=== PATIENT | female | born 1975 | race Caucasian/White ===

== ENCOUNTER 2021-10-06 11:10 | Emergency (ER) | payer OTHER ==
[~2021-10-06] VITALS: Ht 157.5 cm; Wt 47.6 kg
[2021-10-06 11:16] VITALS: BP 111/67
--- NOTE | 2021-10-06 11:20 | NUR ---
Bibs for both ear pressure and high pitch sound x 2 weeks, 03/27 ps. Respiration regular and unlabored. Will continue to monitor the patient.
[2021-10-06] MEDS ORDERED: PRED50TA PO (11:23)
[2021-10-06] MEDS ORDERED: CETI1TAB9 PO (11:23)
== END 2021-10-06 11:34 | disposition home or self-care (01) ==
LOC: ER 11:14
DX: H93.13 Tinnitus, bilateral (principal); Z79.899 Other long term (current) drug therapy